=== PATIENT | male | born 2000 | race Caucasian/White ===

== ENCOUNTER 2023-11-26 19:35 | Emergency (ER) | payer MEDICAID ==
[~2023-11-26] VITALS: Ht 182.9 cm; Wt 80.0 kg
[2023-11-26] MEDS ORDERED: ketorolac trometh inj. 60 MG/2 ML VIAL IM ONE (20:55)
[2023-11-26 21:13] LABS: STREP A SCREEN POSITIVE (Neg)
[2023-11-26] MEDS: dexamethasone sod phosphate 10mg/ml inj PO STA (21:28)
[2023-11-26] MEDS: ketorolac tromethamine 15mg/ml inj. IM ONE (21:29)
[2023-11-26] MEDS ORDERED: AMOX-117 PO (21:34)
[2023-11-26 22:00] VITALS: BP 122/74; PULSE 88; RESP 18; TEMP 97.8; O2SAT 99
== END 2023-11-26 22:04 | disposition home or self-care (01) ==
LOC: ER 19:36
DX: J02.0 Streptococcal pharyngitis (principal); R13.10 Dysphagia, unspecified
CPT/HCPCS: 87880; 96372; 99283; J1100; J1885